=== PATIENT | male | born 1950 | race Caucasian/White ===

== ENCOUNTER 2019-07-16 15:37 | Emergency (ER) | payer MEDICARE ==
[~2019-07-16] VITALS: Ht 182.9 cm; Wt 131.5 kg
[2019-07-16] MEDS ORDERED: ASPI81TA31 PO (16:14)
[2019-07-16] MEDS ORDERED: statin (16:14)
[2019-07-16] MEDS ORDERED: blood thinner (16:14)
[2019-07-16] MEDS ORDERED: BP MEDICATION (16:14)
[2019-07-16] MEDS ORDERED: INSU100V10 SQ ×2 (16:14)
--- NOTE | 2019-07-16 16:14 | NUR ---
pt currently unable to recall all his meds and dosages.
[2019-07-16] MEDS ORDERED: CEFAZOLIN 2 G in IV DEXTROSE 5% 100 ML IV ONE (16:15)
--- NOTE | 2019-07-16 16:15 | NUR ---
PT IS IN ROOM #1A. DR CABRAL EVALUATED THE PT.
[2019-07-16] MEDS ORDERED: CEFAZOLIN 1 G VIAL ONE (16:20)
[2019-07-16 17:21] VITALS: BP 141/83
--- NOTE | 2019-07-16 17:25 | NUR ---
PT WAS D/C'd TO HOME. D/C INSTRUCTIONS GIVEN TO THE PT.
== END 2019-07-16 17:26 | disposition home or self-care (01) ==
LOC: ER 15:37
DX: S62.511B Displaced fracture of proximal phalanx of right thumb, initial encounter for open fracture (principal); E11.9 Type 2 diabetes mellitus without complications; Z79.82 Long term (current) use of aspirin; Z79.4 Long term (current) use of insulin; Z79.899 Other long term (current) drug therapy; X50.1XXA Overexertion from prolonged static or awkward postures, initial encounter; Y93.89 Activity, other specified; Y92.89 Other specified places as the place of occurrence of the external cause; Y99.8 Other external cause status
CPT/HCPCS: 26770; 73120 ×2; 96365; 99284; J0690; A4663; J3490